=== PATIENT | male | born 1955 | race Caucasian/White ===

== ENCOUNTER 2019-01-21 16:40 | Emergency (ER) | payer OTHER ==
[2019-01-21 16:50] VITALS: BP 144/79
--- NOTE | 2019-01-21 17:07 | EDM.PDOC ---
ED HPI GENERAL MEDICAL PROBLEM - General Chief Complaint: Lower Extremity Injury/Pain Stated Complaint: RT ANKLE INJURY Time Seen by Provider: 01/21/19 16:55 Source of Information: Reports: Patient History Limitations: Reports: No Limitations - History of Present Illness INITIAL COMMENTS - FREE TEXT/NARRATIVE: Patient is a 63-year-old male who presents to the ED complaining of right ankle pain. Patient states one hour ago while riding a horse in his pen the horse bucked causing him to fall off. During this his right ankle remain in the stirrup causing it to be twisted awkwardly. Patient fell on his right shoulder as well. There was no loss of conscious. He has not hit his head. He denies any pain to the shoulder. He has full range of motion noted. No bony abnormalities. He suspects he has a bruise. In relation to his head or neck pain again there is no discomfort noted. Has no painful range of motion. No n/t to his extremities. No chest pain, sob, nausea or vomiting, headache, vision changes, abdominal pain, or any other complaints to his extremities. He is on no blood thinners. He does not take Plavix. Right Ankle Pain Score (Numeric/FACES): 4 - Related Data Allergies Allergy/AdvReac Type Severity Reaction Status Date / Time No Known Allergies Allergy Verified 01/21/19 16:51 Home Meds: Home Meds Gluc 2KCl/Chondr/Chai Hy/Hy Ac [Glucosamine & Chondroitin Cap] 1 tab PO DAILY [History] Multivitamin [Multivitamins] 1 tab PO DAILY 07/06/16 [History] Past Medical History HEENT History: Reports: Allergic Rhinitis, Impaired Vision, Sinusitis, Other ( See Below) Other HEENT History: tinnitis, wears glasses Cardiovascular History: Reports: High Cholesterol, Other (See Below) Other Cardiovascular History: aortic regurgiation, heart murmur in childhood Respiratory History: Reports: Asthma (hayfever) Gastrointestinal History: Reports: GERD, Other (See Below) Other Gastrointestinal History: weight loss Genitourinary History: Reports: None [employer]ER History: Reports: None Musculoskeletal History: Reports: None Neurological History: Reports: Headaches, Chronic, Migraines Psychiatric History: Reports: Other (See Below) Other Psychiatric History: claustrophobia Endocrine/Metabolic History: Reports: None Hematologic History: Reports: None Immunologic History: Reports: None Oncologic (Cancer) History: Reports: Non-Hodgkin's Lymphoma Dermatologic History: Reports: None - Past Surgical History Head Surgeries/Procedures: Reports: None Cardiovascular Surgical History: Reports: Other (See Below) Respiratory Surgical History: Reports: Other (See Below) Endocrine Surgical History: Reports: Other (See Below) Social & Family History - Tobacco Use Smoking Status *Q: Never Smoker Second Hand Smoke Exposure: No - Caffeine Use Caffeine Use: Reports: Coffee - Recreational Drug Use Recreational Drug Use: No Review of Systems - Review of Systems Review Of Systems: ROS reveals no pertinent complaints other than HPI. ED EXAM, GENERAL - Physical Exam Exam: See Below Exam Limited By: No Limitations General Appearance: Alert, WD/WN, No Apparent Distress Eye Exam: Bilateral Eye: Normal Inspection, PERRL Ears: Hearing Grossly Normal Nose: Normal Inspection Throat/Mouth: Normal Inspection, Normal Voice, No Airway Compromise Head: Atraumatic, Normocephalic Neck: Normal Inspection, Supple, Non-Tender, Full Range of Motion Respiratory/Chest: No Respiratory Distress, Lungs Clear, Normal Breath Sounds, No Accessory Muscle Use, Chest Non-Tender Cardiovascular: Normal Peripheral Pulses, Regular Rate, Rhythm, No Murmur Peripheral Pulses: 2+: Radial (L), Posterior Tibial (R) GI/Abdominal: Normal Bowel Sounds, Soft, Non-Tender, No Organomegaly, No Distention Back Exam: Normal Inspection, Full Range of Motion. No: Paraspinal Tenderness, Vertebral Tenderness Extremities: Other (With examination of his upper extremities there is some slight discomfort along the top of the right shoulder with no surface swelling or bruising present. No bony abnormalities noted. No pain along the clavicle. No decreased range of motion with evaluation of the right shoulder. No pain to the rainy aspect of the right upper extremity. No pain to left upper extremity. No pain to the his bilaterally. Pulses intact. No discomfort noted to the right and left upper thigh, knee. He has pain along the distal aspect of the tibia- fibula on the medial side. Some slight swelling present. Decreased flexion and extension of the ankle. No pain along the palpation of the metatarsals and toes. No pain along the sole of the foot. There is no discomfort along the fibula and on the lateral malleolus. No discomfort noted proximal tibia/fibula. No pain noted to the left lower extremity.) Neurological: Alert, Oriented, CN II-XII Intact, Normal Cognition, No Motor/ Sensory Deficits Psychiatric: Normal Affect, Normal Mood Skin Exam: Warm, Dry, Intact, Normal Color Course - Vital Signs Last Recorded V/S: Last Vital Signs Temp 98.0 F 01/21/19 16:49 Pulse 85 01/21/19 16:49 Resp 14 01/21/19 16:49 BP 144/79 H 01/21/19 16:49 Pulse Ox 94 L 01/21/19 16:49 - Re-Assessments/Exams Free Text/Narrative Re-Assessment/Exam: X-ray of the right ankle revealed no acute bony abnormalities. X-ray reviewed with Dr. Miranda. Final interpretation is pending. I have ordered a stirup splint for ankle sprain. Patient has crutches already. Return precautions discussed with patient. He will followup with Orthopedic Surgeon of his choice. Discharge instructions as documented. 0 Departure - Departure Time of Disposition: 19:06 Disposition: Home, Self-Care 01 Condition: Good Clinical Impression: Right ankle sprain Qualifiers: Encounter type: initial encounter Involved ligament of ankle: unspecified ligament Qualified Code(s): S93.401A - Sprain of unspecified ligament of right ankle, initial encounter - Discharge Information Instructions: How to Use a Stirrup Ankle Brace, [id number] Referrals: Zackery Moreira MD [Physician] - Forms: ED Department Discharge Additional Instructions: You're to be nonweightbearing toe-touch only for balance within the next 3-5 days. May advance weight thereafter as tolerated. Elevate when able to reduce any swelling and pain. Apply ice to the affected area 3 times a day, 20 minute in duration, do not apply ice directly on the skin. Utilize Tylenol and ibuprofen in alternating fashion for pain. Continue using stirup splint until all symptoms have dissipated. Please follow up with orthopedic surgeon of your choice if symptoms persist. Return back to the ED for any new or worsening symptoms as needed.
--- NOTE | 2019-01-22 09:40 | CR ---
Right ankle: Four views of the right ankle were obtained. Comparison: No prior right ankle exam. Small plantar spur is noted. Ankle mortise is symmetric. No fracture, dislocation or other bony abnormality is seen. Impression: 1. Small plantar spur. Right ankle study is otherwise unremarkable. Diagnostic code #2
== END 2019-01-21 19:20 | disposition home or self-care (01) ==
LOC: JD.ED 16:40
DX: S93.401A Sprain of unspecified ligament of right ankle, initial encounter (principal); Z79.899 Other long term (current) drug therapy; V80.010A Animal-rider injured by fall from or being thrown from horse in noncollision accident, initial encounter
CPT/HCPCS: 73610-26-RT; 73610-RT; 99283-25

== ENCOUNTER 2022-01-26 00:14 | Emergency (ER) | payer MEDICARE, BC ==
[2022-01-26 01:09] VITALS: BP 147/83; PULSE 96
[2022-01-26] MEDS ORDERED: Sodium Chloride 0.9% 10 ML Syringe FLUSH PRN (01:59)
[2022-01-26] MEDS ORDERED: HYDROmorphone 0.5 MG/0.5 ML Syringe IVPUSH ONE (01:59)
[2022-01-26] MEDS ORDERED: Ondansetron 4 MG/2 ML SDV IVPUSH ONE (01:59)
[2022-01-26] MEDS ORDERED: Sodium Chloride 0.9% 1,000 ML IV SCH (02:00)
[2022-01-26] MEDS ORDERED: Iopamidol 612 MG/ML 100 ML Bottle IVPUSH ONE ×2 (04:12→04:13)
[2022-01-26] MEDS ORDERED: Sodium Chloride 0.9% 10 ML Syringe FLUSH ONE ×2 (04:12→04:13)
[2022-01-26] MEDS ORDERED: cefTRIAXone 2 GM in Sodium Chloride 0.9% 100 ML IV STA (05:41)
[2022-01-26] MEDS ORDERED: VANCOmycin 1.5 GM/300 ML 1.5 GM in Premix Bag 1 BAG IV STA (05:42)
== END 2022-01-26 07:04 ==
LOC: JD.ED 00:14
DX: J04.30 Supraglottitis, unspecified, without obstruction (principal); Z20.822 Contact with and (suspected) exposure to COVID-19
CPT/HCPCS: 36415; 70491; 80053; 85007; 85027; 86140; 87651; 96361; 96365; 96367; 96375; 99285; J0696; J1170; J2405; J3370; J3490; J7030; Q9967; U0002; 99284